=== PATIENT | male | born 1960 | race Caucasian/White ===

== ENCOUNTER 2019-12-06 08:41 | Day surgery (SDC) | payer BC ==
[~2019-12-06] VITALS: Ht 177.8 cm; Wt 108.9 kg
[~2019-12-06 08:41] MED LIST: LIPITOR20 MG PO; LOSARTAN POTAS100 MG PO
--- NOTE | 2019-12-06 10:45 | NUR ---
12/06/19 1045 Lisa Pichardo 1036 PATIENT ARRIVES TO PACU SLEEPING, AWAKENS WITH VERBAL STIMULI, BUT UNABLE TO STAY AWAKE. RESP EVEN AND UNLABORED, MASK AT 6 LITERS 1040 PATIENT SLEEPING, STAYS AWAKE LONG ENOUGH TO REPOSITION SELF TO BACK PER COMMAND, THEN BACK TO SLEEP. RESP EVEN AND UNLABORED, MASK OFF, NC AT 3 LITERS, SATS 100%. 1045 PATIENT SLEEPING. RESP EVEN AND UNLABORED, OXYGEN OFF.
--- NOTE | 2019-12-07 07:04 | OR ---
[facility] [address], [place] [address] Signed DATE OF OPERATION: 12/06/2019 SURGEON: Yessenia Marsh MD PREOPERATIVE DIAGNOSES: 1. Status post radiation therapy for prostate cancer (2018). 2. Rectal bleeding. 3. Hemorrhoids. 4. A brother with colon cancer in his early 50s. 5. Mother with colon cancer in her late 70s or early 80s. 6. Father with colonic polyps. POSTOPERATIVE DIAGNOSIS: Distal rectal telangiectasia (radiation proctitis). PROCEDURES: Colonoscopy with cold biopsy. ESTIMATED BLOOD LOSS: None. INDICATIONS: Karla is a 59-year-old gentleman, asked to see me for a followup colonoscopy. He describes his prostate cancer in 2018, requiring radiation therapy. Recently, he had a rectal exam and he has been bleeding ever since. He was trying hydrocortisone suppositories without help. He reviewed his colonoscopy in 2009 as well as upper and lower endoscopy in 2012; apparently, those went well. He is known to have some hemorrhoids. He also explained his brother had colon cancer in his early 50s. Mom had colon cancer somewhere in her late 70s or early 80s. His father also had colonic polyps removed. He tells me he has no pain. In the office, I had given Karla a pamphlet on colonoscopy. We discussed the nature of the colonoscopy along with its risks including, but not limited to gas bloating, crampy abdominal pain, bleeding, perforation requiring surgery, and missed diagnosis. Also, Karla is a large man with a very full round face, heavy neck with significant sleep apnea, requiring CPAP mask on a nightly basis. Consequently, we asked an anesthesia provider to help us with increased monitoring of his airway and infusion of propofol. Karla had expressed understanding and wished to proceed. DESCRIPTION OF PROCEDURE: Karla was taken into our endoscopy suite and placed in the left lateral decubitus Electronically Signed By: YESSENIA MARSH MD 12/07/19 0704 PATIENT NAME: KARLA MCMAHON OPERATIVE REPORT DATE OF : 60 REPORT #: [id number] PHYSICIAN: YESSENIA MARSH MD PCP: AKILAH DUFFY MD REPORT IS CONFIDENTIAL AND NOT TO BE RELEASED WITHOUT AUTHORIZATION [facility] [address], [place] [address] Signed position. 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 A digital rectal exam was performed and his prostate is just a small area, maybe 1 cm or so in diameter. After this, the adult colonoscope was introduced and advanced under direct visualization of camera all the way into the cecum. He took a little extra sedation in order to advance the scope. His prep was good. We could easily see the appendiceal orifice and the ileocecal valve. The scope was slowly withdrawn. We saw no pathology throughout his entire colon or rectum. Upon retroflexion of scope, we can see that he has telangiectasia just above the anal canal consistent with the radiation therapy. He does not have a more classic radiation proctitis per se. The area is somewhat broad, but not excessive. It was not currently bleeding. We went ahead and took two cold biopsies of this area for documentation. After this, the gas was suctioned out. The colonoscope was removed. Karla tolerated the procedure quite well. RECOMMENDATIONS: I will see Karla back in my office in 7 to 14 days to review his results. If he has continued trouble bleeding, he should consider having this treated with the argon beam. Yessenia Marsh MD ALB/MODL /[id number] cc: MD Jeffy Link MD Andrew L Bower, MD Copies: AKILAH DUFFY MD,YESSENIA PICKARD MD, MD ~ Electronically Signed By: YESSENIA MARSH MD 12/07/19 0704 PATIENT NAME: KARLA MCMAHON OPERATIVE REPORT DATE OF : 60 REPORT #: [id number] PHYSICIAN: YESSENIA MARSH MD PCP: AKILAH DUFFY MD REPORT IS CONFIDENTIAL AND NOT TO BE RELEASED WITHOUT AUTHORIZATION
--- NOTE | 2019-12-09 14:07 | PATH ---
[facility] [address], [place] [address] Signed SPECIMEN(S): A RECTUM SPECIMEN SOURCE: A. RECTUM CLINICAL HISTORY: History of radiation therapy, post radiation proctitis. MICROSCOPIC DESCRIPTION: Histologic sections of all submitted blocks are examined by light microscopy. These findings, together with the gross examination, support the pathologic diagnosis. 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 - Negative for dysplasia or malignancy. - See comment. COMMENT: Sections demonstrate rectal mucosa with crypt epithelial damage, mucosal vascular ectasia, lamina propria hyalinization, and mild crypt architectural distortion. No active inflammation, eosinophilic inflammation, or granulomata are seen. Given the history of radiation therapy, the findings are compatible with radiation mucosal damage. Correlation with clinical findings is recommended. NAL:cml:C2NR GROSS DESCRIPTION: The specimen, labeled "MC, 1," and designated on the requisition "rectum," is received in formalin and consists of two barreto soft tissue fragments that measure 0.3 cm in greatest dimension. The specimen is entirely submitted in cassette (A1). AT (under the direct supervision of a pathologist) The Gross Description was prepared using a voice recognition system. The report was reviewed for accuracy; however, sound-alike word errors, addition and/or deletions may occur. If there is any question about this report, please contact Client Services. PERFORMING LABORATORY: The technical component was performed by [email or web address], [address] [place] [id number] (Learning Support Aide: Ivory Fofana MD; CLIA# [id number]). PATIENT NAME: KARLA MCMAHON PATHOLOGY DATE OF : 60 REPORT #: [id number] PHYSICIAN: JENNY PATHOLOGY PCP: AKILAH DUFFY MD REPORT IS CONFIDENTIAL AND NOT TO BE RELEASED WITHOUT AUTHORIZATION [facility] [address], [place] [address] Signed Professional interpretation was performed [facility], [address] [address] (CLIA# [id number]). Diagnostician: Leia Johnson MD Pathologist Electronically Signed 12/09/2019 Copies: ~ PATIENT NAME: KARLA MCMAHON PATHOLOGY DATE OF : 60 REPORT #: [id number] PHYSICIAN: JENNY PATHOLOGY PCP: AKILAH DUFFY MD REPORT IS CONFIDENTIAL AND NOT TO BE RELEASED WITHOUT AUTHORIZATION
== END 2019-12-06 11:10 | disposition home or self-care (01) ==
LOC: DS 08:41 → OPS 08:41 → DS 10:30 → OPS 11:10
PROVIDERS: Colon & Rectal Surgery
PROC: 0DBP8ZX Excision of Rectum, Via Natural or Artificial Opening Endoscopic, Diagnostic (ICD-10-PCS; principal; 2019-12-06 10:30)
DX: K62.5 Hemorrhage of anus and rectum (principal); I10 Essential (primary) hypertension; F17.220 Nicotine dependence, chewing tobacco, uncomplicated; G47.30 Sleep apnea, unspecified; Z99.89 Dependence on other enabling machines and devices; Z85.46 Personal history of malignant neoplasm of prostate; Z80.0 Family history of malignant neoplasm of digestive organs; Z83.71 Family history of colonic polyps; Z79.899 Other long term (current) drug therapy
CPT/HCPCS: J2704; J7121

== ENCOUNTER 2024-11-21 09:07 | Day surgery (SDC) | payer BC ==
[~2024-11-21] VITALS: Ht 177.8 cm; Wt 109.0 kg
[~2024-11-21 09:07] MED LIST changes: +IBLOOD GLUCOSE TEST STRIP 1 EA TEST VI PRN; +LACTATED RINGER'S 1,000 ML IV SCH; +LIDOCAINE HCL 1% 5 ML SDV INJ ONE
[2024-11-21 09:18] VITALS: BP 165/83
[2024-11-21] MEDS ORDERED: AMLODIPINE BESYL5 MG PO (09:21)
[2024-11-21] MEDS ORDERED: LIDOCAINE HCL 2% 5 ML SDV ONE (11:33)
--- NOTE | 2024-11-21 12:08 | NUR ---
11/21/24 1208 Liz Posey 1204-PATIENT ARRIVED TO PACU ON RA RR EVEN. PATIENT NONAROUSABLE LAYING LEFT LATERAL IVF INFUSING. SINUS BRADYCARDIA HR 50'S. ABDOMEN SOFT.
[2024-11-21 12:38] VITALS: BP 148/83
== END 2024-11-21 12:40 | disposition home or self-care (01) ==
LOC: DS 09:07
PROVIDERS: ATTEND Surgery
PROC: 0DJD8ZZ Inspection of Lower Intestinal Tract, Via Natural or Artificial Opening Endoscopic (ICD-10-PCS; principal; 2024-11-21 10:50)
DX: Z12.11 Encounter for screening for malignant neoplasm of colon (principal); I10 Essential (primary) hypertension; Z79.899 Other long term (current) drug therapy; Z80.0 Family history of malignant neoplasm of digestive organs
CPT/HCPCS: 00811; J2003; J2704; J7121